=== PATIENT | male | born 1965 | race Caucasian/White ===

== ENCOUNTER 2025-06-30 06:23 | Day surgery (SDC) | payer OTHER ==
[2025-06-29 09:51] VITALS: BMI 36.5
[2025-06-30] MEDS ORDERED: DEXAMETHASONE SOD PHOSPHATE 10 MG/1 ML VIAL ONE (07:27)
[2025-06-30] MEDS ORDERED: LIDOCAINE HCL/PF 1% SDV 5ML VIAL ONE (07:27)
[2025-06-30] MEDS ORDERED: ACETAMINOPHEN 500 MG TABLET (FP) PO PRN (08:55)
[2025-06-30] MEDS: LIDOCAINE HCL 1% PRESERVATIVE FREE - 30ML VIAL IJ ONE ×3 (10:34→10:35)
[2025-06-30] MEDS: BUPIVACAINE HCL/PF 0.25% (2.5MG/ML) 10 ML VIAL IJ ONE ×5 (10:35→10:38)
[2025-06-30] MEDS: IOHEXOL 180 MG/1 ML ML IJ ONE ×2 (10:36)
[2025-06-30] MEDS: TRIAMCINOLONE ACET 40MG/1ML VIAL IM ONE ×2 (10:39)
[2025-06-30 10:53] VITALS: BP 137/63; PULSE 58; RESP 14; TEMP 97.2
== END 2025-06-30 11:15 | disposition home or self-care (01) ==
LOC: JASU-SURG 06:23
PROVIDERS: ATTEND Pain Medicine Pain Medicine
PROC: 3E0U3BZ Introduction of Anesthetic Agent into Joints, Percutaneous Approach (ICD-10-PCS; 2025-06-30)
PROC: 3E0U33Z Introduction of Anti-inflammatory into Joints, Percutaneous Approach (ICD-10-PCS; principal; 2025-06-30 10:15)
DX: M16.12 Unilateral primary osteoarthritis, left hip (principal)
CPT/HCPCS: 76000-TC-FY; J1100